=== PATIENT | female | born 1995 | race Caucasian/White ===

== ENCOUNTER 2016-08-31 11:32 | Day surgery (SDC) | payer OTHER ==
[2016-08-31 14:04] VITALS: BMI 30.1
[2016-08-31 14:47] VITALS: TEMP 98.2
[2016-08-31 15:42] VITALS: BP 110/69; PULSE 81
--- NOTE | 2016-09-02 12:54 | PATH ---
Surgical Pathology Report Patient Name: KAROLINA LO [facility]. Rec. #: [id number] /Age/Gender: 1995 (Age: 21) / F Account: [id number] Location: [facility]OS[facility] Taken: 08/31/2016 Received: 09/01/2016 Reported: 09/02/2016 Physicians: Arnold Serrano M.D. Specimen(s) Received A: BX DUODENUM B: BX STOMACH Clinical History Epigastric pain Celiac sprue, erythema of stomach Final Diagnosis A. DUODENUM, BIOPSY: DUODENAL MUCOSA WITH MILD CHRONIC INFLAMMATION. NO HISTOLOGIC EVIDENCE OF GLUTEN SENSITIVE ENTEROPATHY (CELIAC DISEASE): PRESERVED VILLOUS ARCHITECTURE, NO SIGNIFICANT INCREASE IN INTRAEPITHELIAL LYMPHOCYTES. B. STOMACH, BIOPSY: GASTRIC OXYNTIC MUCOSA WITH MODERATE CHRONIC GASTRITIS. IMMUNOSTAIN FOR H. PYLORI IS NEGATIVE FOR ORGANISMS. Electronically Signed Fahad Morris M.D. Gross Description A. Received in formalin, labeled "biopsy duodenum" are 2 ziegler, irregular portions of soft tissue measuring 0.2 and 0.7 cm in greatest dimension. The specimens are submitted in toto in one cassette. B. Received in formalin, labeled "biopsy stomach" are 2 ziegler, irregular portions of soft tissue measuring 0.1 and 0.5 cm in greatest dimension. The specimens are submitted in toto in one cassette. 09/01/201609/01/2016
== END 2016-08-31 15:00 | disposition home or self-care (01) ==
LOC: JASU-ENDO 11:32
PROVIDERS: ATTEND Internal Medicine Gastroenterology
PROC: 0DB68ZX Excision of Stomach, Via Natural or Artificial Opening Endoscopic, Diagnostic (ICD-10-PCS; 2016-08-31)
PROC: 0DB98ZX Excision of Duodenum, Via Natural or Artificial Opening Endoscopic, Diagnostic (ICD-10-PCS; principal; 2016-08-31 12:00)
DX: K29.50 Unspecified chronic gastritis without bleeding (principal); K29.80 Duodenitis without bleeding
CPT/HCPCS: 84703; 88305-TC; 88342-TC